=== PATIENT | female | born 1995 | race Two or more races ===

== ENCOUNTER → 2019-10-22 | Outpatient (CLI) | payer BC ==
--- NOTE | 2019-10-22 16:36 | RAD ---
Transvaginal OB ultrasound less than 14 weeks 10/22/2019 CLINICAL HISTORY: First trimester with vaginal bleeding. TECHNIQUE: A transvaginal ultrasound study was performed. Multiple images were obtained. FINDINGS: A gestational sac is seen within the endometrial canal of the body/fundus of the uterus. Within this gestational sac an embryonic pole and associated yolk sac are seen. The CRL of the embryonic pole measures 4.1 mm in length. This corresponds to an estimated gestational age by ultrasound of 6 weeks 1 day plus or minus a standard deviation of 5 days. Embryonic cardiac activity is seen on the real-time images. The embryo is too small to accurately measure the heart rate using M-mode. No abnormality of the uterus is seen. Both ovaries are within normal limits in size and echogenicity. The right ovary measures 3.6 x 3.6 x 2.5 cm in size. The left ovary measures 3.4 x 2.2 x 2.0 cm in size. A small amount of free fluid is seen within the pelvis. No adnexal mass is seen. IMPRESSION: Single living IUP with an estimate of gestational age by ultrasound of 6 weeks 1 day plus or minus a standard deviation of 5 days. The estimated date of delivery by ultrasound is 06/15/2020. Electronically signed by: Alejandro Delarosa MD (10/22/2019 4:33 PM) [id number]
== END ==
LOC: US 15:17
PROVIDERS: ATTEND Obstetrics & Gynecology
DX: Z01.419 Encounter for gynecological examination (general) (routine) without abnormal findings (principal); Z11.3 Encounter for screening for infections with a predominantly sexual mode of transmission; N93.8 Other specified abnormal uterine and vaginal bleeding; Z3A.01 Less than 8 weeks gestation of pregnancy
CPT/HCPCS: 76817